=== PATIENT | male | born 1990 | race Caucasian/White ===

== ENCOUNTER 2022-04-10 12:51 | Emergency (ER) | payer OTHER ==
[2022-04-10] MEDS ORDERED: Amoxicillin500 MG PO (13:37)
== END 2022-04-10 13:37 | disposition home or self-care (01) ==
DX: K04.7 Periapical abscess without sinus (principal); F17.200 Nicotine dependence, unspecified, uncomplicated

== ENCOUNTER 2023-09-23 09:28 | Emergency (ER) | payer OTHER ==
[~2023-09-23] VITALS: Ht 180.3 cm; Wt 90.7 kg
[~2023-09-23 09:28] MED LIST: Amoxicillin500 MG PO
[2023-09-23 09:44] VITALS: BP 129/92
[2023-09-23] MEDS ORDERED: AMOCLA875 PO (10:25)
== END 2023-09-23 10:38 | disposition home or self-care (01) ==
LOC: ER 09:28
DX: K12.2 Cellulitis and abscess of mouth (principal)
CPT/HCPCS: 10060; 99282-25